=== PATIENT | female | born 1930 | race Caucasian/White ===

== ENCOUNTER 2017-01-13 08:53 | Inpatient (IN) ==
[2017-01-13 10:16] LABS: INR 1.1; PT Patient Result 11.7 SECS
[2017-01-13 10:18] LABS: Alanine Aminotransferase 19 U/L (13-56); Albumin 3.7 G/DL (3.4-5.0); Alkaline Phosphatase 85 U/L (45-117); Aspartate Amino Transferase 17 U/L (0-37); Bilirubin,Total < 0.39 MG/DL (0.2-1.0); Blood Urea Nitrogen 12 MG/DL (7-18); Calcium 9.2 MG/DL (8.5-10.1); Glucose 102 MG/DL (74-106); Osmolality,Calculated 256.1 MOS/KG (273-304); Potassium 5.3 MMOL/L (3.5-5.1); Sodium 128 MMOL/L (136-145); Total Protein 6.6 G/DL (6.4-8.3); Troponin I Only 0.037 NG/ML (0.00-0.045)
[2017-01-13 10:24] LABS: Basophils # 0.1 10*3/uL (0.0-0.2); Basophils % 1.2 % (0.0-0.8); Eosinophils # 0.1 10*3/uL (0.0-0.87); Eosinophils % 1.2 % (0.00-10.9); Hematocrit 37.4 VOL% (35.7-47.0); Hemoglobin 13.1 GM/DL (12.0-16.0); Immature Granulocytes % 0.3 %; Immature Granulocytes Absolute 0.02 #; Lymphocytes % 14.9 % (21.3-54.2); Mean Corpuscular Hemoglobin 30 PG (27-34); Mean Corpuscular Volume 85.2 FL (87-102); Mean Platelet Volume 10.6 FL (9.6-12.0); Monocytes # 0.7 10*3/uL (0.11-0.8); Neutrophils # 4.6 10*3/uL (1.4-7.4); Neutrophils % 71.4 % (38.7-73.9); Platelet Count 222 T/CUMM (130-400); Red Blood Count 4.39 MC/CUMM (3.8-5.5); Red Cell Distribution Width 13.3 % (9.3-17.3); White Blood Count 6.4 T/CUMM (4-12)
[2017-01-13 10:39] LABS: Amorphous Crystals,Urine Occasional /HPF (Few); Apearance,Urine CLEAR (Clear); Bilirubin,Urine Negative (Negative); Blood, Urine Negative (Negative); Glucose,Urine (UA) Negative (Negative); Ketones,Urine Negative (Negative); Nitrite,Urine Negative (Negative); Protein,Urine Negative; RBC,Urine <1 /HPF (0-4); Squamous Epithelial Cell,Urine Occasional /HPF (0-10); Urine Color Yellow (Yellow); Urine Specific Gravity 1.006 (1.001-1.035); Urine Urobilinogen < 2.0 EU/DL (0.2-1.0); WBC,Urine 1 /HPF (0-6)
[2017-01-13] MEDS ORDERED: ONDANSETRON 4 MG/2 ML VIAL IV PRN (12:54)
[2017-01-13] MEDS ORDERED: INFLUENZA VIRUS VACCINE 0.5 ML SYRINGE IM ONE (13:30)
[2017-01-13] MEDS ORDERED: ALUMINUM/MAGNES/SIMETH MAX STR 30 ML UDCUP PO PRN (13:35)
[2017-01-13] MEDS ORDERED: amLODIPine 5 MG TABLET PO ONE (13:38)
[2017-01-13] MEDS: SODIUM CHLORIDE 0.9% 1,000 ML IV SCH (14:24)
[2017-01-13] MEDS: PANTOPRAZOLE 40 MG TABLET PO SCH (14:50)
[2017-01-13 19:23] LABS: Free T4 (Free Thyroxine) 0.85 NG/DL (0.76-1.46); Thyroid Stimulating Hormone 6.36 uIU/ml (0.358-3.74)
[2017-01-13 19:43] LABS: Folate 19.2 NG/ML (5.4-24.0)
[2017-01-13] MEDS ORDERED: PREGABALIN 75 MG CAPSULE PO SCH (21:00)
[2017-01-13] MEDS: ACETAMINOPHEN 325 MG TABLET PO PRN (21:11)
[2017-01-13] MEDS: LORazepam 0.5 MG TABLET PO SCH (21:12)
[2017-01-13] MEDS: DOCUSATE SODIUM 100 MG CAPSULE PO SCH (21:12)
[2017-01-13] MEDS: DONEPEZIL 5 MG TABLET PO SCH (21:12)
[2017-01-14] MEDS: SODIUM CHLORIDE 0.9% 1,000 ML IV SCH ×3 (00:29→18:52)
[2017-01-14 06:07] LABS: Basophils # 0.1 10*3/uL (0.0-0.2); Basophils % 1.4 % (0.0-0.8); Eosinophils # 0.2 10*3/uL (0.0-0.87); Eosinophils % 2.6 % (0.00-10.9); Hematocrit 34.5 VOL% (35.7-47.0); Hemoglobin 12.4 GM/DL (12.0-16.0); Immature Granulocytes % 0.5 %; Immature Granulocytes Absolute 0.03 #; Lymphocytes # 1.8 10*3/uL (1.4-4.0); Lymphocytes % 26.7 % (21.3-54.2); Mean Corpuscular HGB Conc 35.9 GM/DL (32-36); Mean Corpuscular Hemoglobin 30 PG (27-34); Mean Corpuscular Volume 83.1 FL (87-102); Mean Platelet Volume 11.1 FL (9.6-12.0); Monocytes # 0.9 10*3/uL (0.11-0.8); Monocytes % 12.9 % (1.7-12.7); Neutrophils # 3.7 10*3/uL (1.4-7.4); Neutrophils % 55.9 % (38.7-73.9); Platelet Count 230 T/CUMM (130-400); Red Blood Count 4.15 MC/CUMM (3.8-5.5); Red Cell Distribution Width 13.4 % (9.3-17.3); White Blood Count 6.6 T/CUMM (4-12)
[2017-01-14 06:44] LABS: Calcium 8.8 MG/DL (8.5-10.1); Osmolality,Calculated 258.1 MOS/KG (273-304); Potassium 4.5 MMOL/L (3.5-5.1)
[2017-01-14] MEDS ORDERED: PANTOPRAZOLE 40 MG TABLET PO SCH (09:00)
[2017-01-14] MEDS: DOCUSATE SODIUM 100 MG CAPSULE PO SCH ×2 (09:48→21:31)
[2017-01-14] MEDS: ESCITALOPRAM 10 MG TABLET PO SCH (09:48)
[2017-01-14] MEDS: PANTOPRAZOLE 40 MG TABLET PO SCH (09:48)
[2017-01-14] MEDS: TRIAMTERENE/HCTZ 37.5-25 MG CAPSULE PO SCH (09:48)
[2017-01-14] MEDS: LOSARTAN 25 MG TABLET PO SCH (09:48)
[2017-01-14] MEDS: ACETAMINOPHEN 325 MG TABLET PO PRN (21:28)
[2017-01-14] MEDS: LORazepam 0.5 MG TABLET PO SCH (21:29)
[2017-01-14] MEDS: DONEPEZIL 5 MG TABLET PO SCH (21:31)
[2017-01-14] MEDS: AMITRIPTYLINE 10 MG TABLET PO SCH (21:31)
[2017-01-15 06:19] LABS: Calcium 8.7 MG/DL (8.5-10.1); Osmolality,Calculated 256.1 MOS/KG (273-304)
[2017-01-15] MEDS: SODIUM CHLORIDE 0.9% 1,000 ML IV SCH ×2 (06:45→21:51)
[2017-01-15] MEDS: LOSARTAN 25 MG TABLET PO SCH (08:36)
[2017-01-15] MEDS: DOCUSATE SODIUM 100 MG CAPSULE PO SCH ×2 (08:36→21:49)
[2017-01-15] MEDS: TRIAMTERENE/HCTZ 37.5-25 MG CAPSULE PO SCH (08:36)
[2017-01-15] MEDS: PANTOPRAZOLE 40 MG TABLET PO SCH (08:37)
[2017-01-15] MEDS: ESCITALOPRAM 10 MG TABLET PO SCH (08:37)
[2017-01-15] MEDS: LORazepam 0.5 MG TABLET PO SCH (21:49)
[2017-01-15] MEDS: AMITRIPTYLINE 10 MG TABLET PO SCH (21:49)
[2017-01-15] MEDS: DONEPEZIL 5 MG TABLET PO SCH (21:49)
[2017-01-16] MEDS: SODIUM CHLORIDE 0.9% 1,000 ML IV SCH ×2 (02:36→21:40)
[2017-01-16] MEDS: ACETAMINOPHEN 325 MG TABLET PO PRN ×2 (02:37→21:01)
[2017-01-16 05:28] LABS: Calcium 8.6 MG/DL (8.5-10.1); Osmolality,Calculated 260.9 MOS/KG (273-304)
[2017-01-16 08:56] LABS: % Iron Saturation 17.8 % (18-50)
[2017-01-16] MEDS: DOCUSATE SODIUM 100 MG CAPSULE PO SCH ×2 (11:35→20:57)
[2017-01-16] MEDS: LOSARTAN 25 MG TABLET PO SCH (11:35)
[2017-01-16] MEDS: PANTOPRAZOLE 40 MG TABLET PO SCH (11:37)
[2017-01-16] MEDS: ESCITALOPRAM 10 MG TABLET PO SCH (11:37)
[2017-01-16] MEDS: TRIAMTERENE/HCTZ 37.5-25 MG CAPSULE PO SCH (11:38)
[2017-01-16] MEDS: LORazepam 0.5 MG TABLET PO SCH (20:57)
[2017-01-16] MEDS: DONEPEZIL 5 MG TABLET PO SCH (20:57)
[2017-01-16] MEDS: AMITRIPTYLINE 10 MG TABLET PO SCH (20:57)
[2017-01-17 07:54] LABS: Basophils # 0.1 10*3/uL (0.0-0.2); Basophils % 1.4 % (0.0-0.8); Eosinophils # 0.2 10*3/uL (0.0-0.87); Eosinophils % 2.4 % (0.00-10.9); Hematocrit 34.9 VOL% (35.7-47.0); Hemoglobin 12.4 GM/DL (12.0-16.0); Immature Granulocytes % 0.2 %; Immature Granulocytes Absolute 0.01 #; Lymphocytes % 31.4 % (21.3-54.2); Mean Corpuscular HGB Conc 35.5 GM/DL (32-36); Mean Corpuscular Hemoglobin 30 PG (27-34); Mean Corpuscular Volume 83.7 FL (87-102); Mean Platelet Volume 10.9 FL (9.6-12.0); Monocytes % 15.7 % (1.7-12.7); Neutrophils # 3.1 10*3/uL (1.4-7.4); Neutrophils % 48.9 % (38.7-73.9); Platelet Count 219 T/CUMM (130-400); Red Blood Count 4.17 MC/CUMM (3.8-5.5); Red Cell Distribution Width 13.5 % (9.3-17.3); White Blood Count 6.2 T/CUMM (4-12)
[2017-01-17 08:15] VITALS: BP 177/72
[2017-01-17 08:17] LABS: Band Neutrophils 1 % (0-10); Eosinophils 2 % (0-10); Giant Platelets Few; Hypochromasia 1+; Lymphocytes 27 % (20-55); Nucleated Red Blood Cells 1 (0-5); Ovalocytes Slight; Platelet Estimate Normal; Segmented Neutrophils 56 % (50-85); Total Cells Counted 100
[2017-01-17] MEDS ORDERED: LOSARTAN 50 MG TABLET PO SCH (09:00)
[2017-01-17] MEDS: ESCITALOPRAM 10 MG TABLET PO SCH (10:12)
[2017-01-17] MEDS: PANTOPRAZOLE 40 MG TABLET PO SCH (10:13)
[2017-01-17] MEDS: DOCUSATE SODIUM 100 MG CAPSULE PO SCH (10:13)
== END 2017-01-17 11:34 | disposition home or self-care (01) | DRG 312 ==
LOC: EDUNIT# → N.ED 08:53 → N.EDINP 10:45 → N.TELES 12:46
PROVIDERS: ADMIT Family Medicine; ATTEND Family Medicine